=== PATIENT | female | born 1980 | race African-American/Black ===

== ENCOUNTER 2017-01-18 21:13 | Emergency (ER) | payer OTHER ==
[~2017-01-18] VITALS: Ht 157.5 cm; Wt 65.8 kg
--- NOTE | ~2017-01-18 | EKG ---
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
[2017-01-18] MEDS ORDERED: NAPROSYN500 MG PO (23:39)
[2017-01-18 23:55] VITALS: BP 122/83
== END 2017-01-18 23:55 | disposition home or self-care (01) ==
LOC: ER 21:13
DX: R07.89 Other chest pain (principal)